=== PATIENT | female | born 1990 | race Caucasian/White ===

== ENCOUNTER 2016-05-15 19:42 | Emergency (ER) | payer OTHER ==
[~2016-05-15] VITALS: Ht 162.6 cm; Wt 53.1 kg
[2016-05-15] MEDS ORDERED: PREN29TA4 PO (20:13)
[2016-05-15 20:48] LABS: BASO % 0.1 % (0.0-1.0); EOS # 0.3 K/mm3 (0.0-0.50); EOS % 1.5 % (0.0-3.0); LARGE UNSTAINED CELL # 0.1 K/mm3 (0.0-0.4); LARGE UNSTAINED CELL % 0.6 % (0.0-4.0); LYMPH # 1.6 K/mm3 (1.5-6.5); LYMPH % 8.6 % (24.0-44.0); MEAN CORPUSCULAR HEMOGLOBIN 31.6 pg (27.0-33.0); MEAN CORPUSCULAR HGB CONC 33.9 g/dl (32.0-36.5); MEAN CORPUSCULAR VOLUME 93.2 fl (80.0-96.0); MONO # 0.5 K/mm3 (0.0-0.8); NEUTROPHILS # 14.7 K/mm3 (1.8-7.7); NEUTROPHILS % 86.2 % (36.0-66.0); PLATELET COUNT, AUTOMATED 271 k/mm3 (150-450); RED CELL DISTRIBUTION WIDTH 12.6 % (11.5-14.5); WHITE BLOOD COUNT 17.1 K/mm3 (4.0-10.0)
--- NOTE | 2016-05-15 21:30 | REPUSA ---
Clinical history: vaginal bleeding. Findings: Real-time transabdominal and transvaginal ultrasound images of the pelvis were obtained. Th ere is a single live intrauterine . The crown rump length measures 6.6 cm. heart rate measures 189 bpm. Cervix measures 1.4 cm in length. The gestational sac including the head prot rudes into the internal cervical os. There is no evidence of a subchorionic hemorrhage. An anteverted uterus is noted. The right ovary measures 4.0 x 2.3 x 3.1 cm. The left ovary measures 4.6 x 3.4 x 3. 5 cm. There is a complex left ovarian cyst measuring 1.6 x 1.7 x 1.2 cm. No adnexal masses are seen. Color Doppler flow is seen within both ovaries. There is no evidence of free fluid. Impression: 1. Single live intrauterine measuring 13 weeks, with a heart rate of 189 bpm. [facility] ed date of delivery is 11/20/2016. However, the head and gestational sac protrude into the inte rnal cervical os. The cervix is also shortened. in progress must be considered. Follow-up is suggested as clinically indicated. 2. Left ovarian corpus luteum cyst.
[2016-05-15 22:09] VITALS: BP 120/70
== END 2016-05-15 22:10 | disposition home or self-care (01) ==
LOC: M ED 21:53
DX: O20.0 Threatened abortion (principal); Z3A.12 12 weeks gestation of pregnancy

== ENCOUNTER 2016-05-16 17:31 | Emergency (ER) | payer OTHER ==
[~2016-05-16] VITALS: Ht 162.6 cm; Wt 53.1 kg
[~2016-05-16 17:31] MED LIST: PREN29TA4 PO
[2016-05-16 17:32] VITALS: BP 117/77
[2016-05-16 18:49] LABS: MEAN CORPUSCULAR HEMOGLOBIN 31.3 pg (27.0-33.0); MEAN CORPUSCULAR HGB CONC 34.6 g/dl (32.0-36.5); MEAN CORPUSCULAR VOLUME 90.4 fl (80.0-96.0); RED CELL DISTRIBUTION WIDTH 12.4 % (11.5-14.5); WHITE BLOOD COUNT 16.3 K/mm3 (4.0-10.0)
[2016-05-16] MEDS ORDERED: ONDANSETRON 4MG/2ML VIAL (J2405) IV ONE (20:15)
[2016-05-16] MEDS ORDERED: MORPHINE 4 MG/ML 1ML SYRINGE IV ONE (20:15)
--- NOTE | 2016-05-16 21:10 | REPUSA ---
Clinical history: Pain. Comparison: 05/15/2016. Findings: Real-time transabdominal and transvaginal ultrasound images of the pelvis were obtained. An anteverted uterus is noted, measuring 11.0 x 6.8 x 8.7 cm. The uterus demonstrates normal echotextur e and echogenicity. The endometrial stripe measures 31 mm. Now intrauterine gestation is identified a t this time. Large amount of complex echogenic material seen throughout the endometrial cavity. The r ight ovary measures 3.1 x 2.3 x 2.6 cm. The left ovary measures 4.5 x 2.5 x 3.9 cm. A left ovarian cy st measures 1.3 x 1.6 x 1.7 cm. No adnexal masses are seen. Color Doppler flow is seen within both ov varun. There is no evidence of free fluid. Impression: 1. Findings consistent with in progress, with a large amount of complex material within the endometrial canal, likely representing a mixture of blood products and products of conception. 2. Left ovarian corpus luteum cyst.
== END 2016-05-16 22:52 | disposition home or self-care (01) ==
LOC: M ED 18:16
DX: O03.9 Complete or unspecified spontaneous abortion without complication (principal); Z3A.12 12 weeks gestation of pregnancy
CPT/HCPCS: 36415; 76801; 84702; 85027; 86850; 86900; 86901; 88305; 96374; 96375; 99283; J2405

== ENCOUNTER 2016-09-21 20:21 | Inpatient (IN) | payer OTHER ==
[~2016-09-21] VITALS: Ht 162.6 cm; Wt 58.6 kg
[2016-09-21] MEDS: PRENATAL VITAMINS CHEWABLE TABLET PO SCH (21:00)
[2016-09-21] MEDS ORDERED: PREN1TAB11 PO (21:09)
[2016-09-21] MEDS ORDERED: TYLE500T78 PO (21:09)
[2016-09-21 21:31] LABS: MEAN CORPUSCULAR HEMOGLOBIN 30.4 pg (27.0-33.0); MEAN CORPUSCULAR HGB CONC 34.3 g/dl (32.0-36.5); MEAN CORPUSCULAR VOLUME 88.7 fl (80.0-96.0); WHITE BLOOD COUNT 7.6 K/mm3 (4.0-10.0)
[2016-09-21 21:46] LABS: CONTROL LINE HCG INT CTR LINE PRESENT
[2016-09-21 21:51] LABS: METHADONE URINE NEGATIVE (NEGATIVE)
[2016-09-21 22:03] LABS: ALBUMIN 4.1 GM/DL (3.2-5.2); ALBUMIN/GLOBULIN RATIO 1.11 (1.00-1.93); ALKALINE PHOSPHATASE 88 U/L (45-117); ALT/SGPT 28 U/L (12-78); ANION GAP 8 MEQ/L (8-16); AST/SGOT 23 U/L (15-37); BILIRUBIN,DIRECT 0.1 MG/DL (0.0-0.2); BILIRUBIN,TOTAL 0.4 MG/DL (0.2-1.0); BLOOD UREA NITROGEN 15 MG/DL (7-18); CALCIUM LEVEL 8.9 MG/DL (8.5-10.1); CARBON DIOXIDE LEVEL 29 MEQ/L (21-32); CHLORIDE LEVEL 105 MEQ/L (98-107); CREATININE FOR GFR 0.74 MG/DL (0.55-1.02); GLOMERULAR FILTRATION RATE > 60.0 (>60); GLUCOSE, FASTING 104 MG/DL (70-105); POTASSIUM SERUM 3.8 MEQ/L (3.5-5.1); SODIUM LEVEL 142 MEQ/L (136-145); TOTAL PROTEIN 7.8 GM/DL (6.4-8.2)
[2016-09-21] MEDS ORDERED: MAALOX 30 ML SUSP *UDC PO PRN (22:30)
[2016-09-21] MEDS ORDERED: traZODone 50 MG TAB PO PRN (22:30)
[2016-09-21] MEDS ORDERED: MOM 30ML SUSPENSION UDC PO PRN (22:30)
[2016-09-21] MEDS ORDERED: LORazepam 1 MG TAB PO PRN (22:30)
[2016-09-21] MEDS ORDERED: HALOPERIDOL 5 MG TAB PO PRN (22:30)
[2016-09-21] MEDS ORDERED: ACETAMINOPHEN TAB 650MG DOSE (2X325MG) PO PRN (22:30)
[2016-09-21 22:56] VITALS: BP 118/80
[2016-09-22 06:50] VITALS: BP 105/69
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
[2016-09-22] MEDS: CitaloPRAM (CeleXA) 10 MG TABLET PO SCH (13:37)
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
[2016-09-22 18:00] VITALS: BP 117/77
--- NOTE | 2016-09-22 20:12 | ECGEPIP ---
Stationary ECG Study [facility] Test Date: 2016-09-22 Pat Name: PAULA SIMPSON Department: Room: [place] [address] Gender: F Payroll Director: VERNOICA : 1990 Requested By: Theresa Richardson Order Number: [id number] Reading MD: Richardson Francisco Measurements Intervals [place] Rate: 56 P: 61 MA: 132 QRS: 68 QRSD: 83 T: 44 QT: 403 QTc: 392 Interpretive Statements SINUS BRADYCARDIA WITH SINUS ARRHYTHMIA NO PRIOR Electronically Signed On 09-22-2016 20:11:41 EDT by Richardson Francisco
[2016-09-22] MEDS: PRENATAL VITAMINS CHEWABLE TABLET PO SCH (21:07)
[2016-09-22] MEDS: traZODone 50 MG TAB PO SCH (21:07)
[2016-09-23 06:26] VITALS: BP 113/59
[2016-09-23] MEDS: CitaloPRAM (CeleXA) 10 MG TABLET PO SCH (08:55)
[2016-09-23 18:00] VITALS: BP 116/63
[2016-09-23] MEDS: PRENATAL VITAMINS CHEWABLE TABLET PO SCH (20:33)
[2016-09-23] MEDS: traZODone 50 MG TAB PO SCH (20:33)
[2016-09-24 06:41] VITALS: BP 112/62
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
[2016-09-24 18:00] VITALS: BP 114/57
[2016-09-24] MEDS: traZODone 50 MG TAB PO SCH (20:34)
[2016-09-24] MEDS: CitaloPRAM (CeleXA) 10 MG TABLET PO SCH (20:34)
[2016-09-24] MEDS: PRENATAL VITAMINS CHEWABLE TABLET PO SCH (20:34)
[2016-09-25 06:53] VITALS: BP 109/56
--- NOTE | 2016-09-25 12:23 | MHIPN ---
DATE: 09/23/2016 Temperature 98.9, pulse 65, respirations 18, blood pressure 113/59. CURRENT MEDICATIONS: - Celexa 10 mg every morning - trazodone 50 mg at bedtime HISTORY OF PRESENT ILLNESS: Patient still reports her mood as depressed. Her appetite is good. She slept somewhat better last night with the trazodone. Her concentration is not very good. Her did visit yesterday. The visit went well. She did get her first dose of Celexa yesterday. She had some mild nausea from it. It also made her sleepy and she took a nap afterwards. The patient has been attending the groups. The patient is getting her second dose of Celexa here this morning. Patient appears comfortable taking the psychotropics. The risks and benefit profile have been reviewed thoroughly yesterday to her satisfaction. MENTAL STATUS EXAMINATION: Patient is alert, oriented and cooperative. Affect remains sad. Mood is mildly to moderately depressed. She is not currently suicidal. No signs of psychosis. No signs of impulsivity or dangerousness. Judgment appears reasonably good. Grooming and hygiene appear good. DIAGNOSIS: Major depression, moderate in severity. PLAN: Continue psychotropics. If morning dose of Celexa is to sedating it will be switched to a bedtime dosage.
[2016-09-25 18:00] VITALS: BP 111/64
[2016-09-25] MEDS: PRENATAL VITAMINS CHEWABLE TABLET PO SCH (20:31)
[2016-09-25] MEDS: traZODone 50 MG TAB PO SCH (20:31)
[2016-09-25] MEDS: CitaloPRAM (CeleXA) 10 MG TABLET PO SCH (20:31)
--- NOTE | 2016-09-26 06:26 | MHIPN ---
DATE OF VISIT: 09/24/2016 CHIEF COMPLAINT: Says she feels better. SUBJECTIVE: Seen in followup, in the presence of staff. She says she is feeling better, she is glad she did not . She feels less depressed, less anxious. She suggests her is supportive and that they have been talking about their difficulties. MENTAL STATUS EXAM: Neat, cooperative, but somewhat superficially so, and possibly a bit guarded. No agitation, no psychomotor retardation. Mood is "okay", affect is restricted in range, somewhat incongruent mood. She denies any active suicidal thought or intact. No homicidal ideation or intent. Currently no evidence of any psychosis. Cognition is grossly intact. Judgment is quite questionable as is insight. ASSESSMENT: 1. Major depressive disorder. 2. Post traumatic stress disorder. PLAN: Continue current care, she has just been started on Citalopram at 10 mg daily. She will continue with trazodone at 50 mg at night as well. Would suggest obtaining collateral information, and encouraging her to participate in activities. VITAL SIGNS: Blood pressure 112/62, pulse 61, temperature 98.9.
[2016-09-26 06:31] VITALS: BP 127/63
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
[2016-09-26 18:00] VITALS: BP 121/72
[2016-09-26] MEDS: traZODone 50 MG TAB PO SCH (20:36)
[2016-09-26] MEDS: CitaloPRAM (CeleXA) 10 MG TABLET PO SCH (20:36)
[2016-09-26] MEDS: PRENATAL VITAMINS CHEWABLE TABLET PO SCH (20:36)
--- NOTE | 2016-09-26 21:54 | MHIPN ---
DATE: 09/25/2016 CHIEF COMPLAINT: She says she feels better. SUBJECTIVE: Seen for followup, in the presence of staff, says she feels better and that sleep has been fair, appetite is good, feels more optimistic. MENTAL STATUS EXAM: Neat, cooperative, less guarded than yesterday. She is coherent. Affect is broader as well. She denies any thoughts of harming herself or anyone else. No evidence of any psychosis. Cognition is grossly intact. Judgment and insight remains fair. ASSESSMENT: Major depressive disorder. PLAN: Continue current care, observations, and I would encourage participation and activities in the unit. She will be seeing the assigned psychiatrist as well as the treatment team tomorrow. VITAL SIGNS: These are as listed: Blood pressure 109/56, pulse 79, temperature 98.2.
[2016-09-27 07:27] VITALS: BP 122/57
--- NOTE | 2016-09-27 17:36 | MHIPNPDOC ---
[facility] Progress Note Progress Note DATE OF SERVICE: 09/27/16 HISTORY: Patient was seen and evaluated for her progress in the inpatient psychiatric unit. On evaluation, patient reported that she has been feeling less depressed and anxious. Yesterday her visited and told her that he has started with anger management classes. He is also interested in going for marital counseling with the patient. Patient reported that she was not expecting that the will be able to follow through but very glad that he started going for anger management classes. Discussed about ways to helping him and avoiding the arguments in the house. She denies any suicidal or homicidal ideations sleeping and eating fine, able to participate in activities of the unit. She is refusing to increase the dose of Celexa but sees planning to follow up with outpatient psychiatrist who can change to medication if need be. VITAL SIGNS: See below. CURRENT MEDICATIONS: See below. MENTAL STATUS EXAMINATION: 25yo female sitting in the chair, looks appropriate for the stated age, fair hygiene and grooming, decrease psychomotor activities, no abnormal movements, cooperative with fair eye contact, speech is soft, normal in rate, rhythm, amount and prosody, mood is 'better', affect constricted and mood congruent, thought process is logical and goal directed, denies suicidal and homicidal ideations, denies hallucinations, no delusions elicited, aaox3, limited insight , fair judgement and impulse control DIAGNOSES: 1. Major depression, moderate in severity, with no psychosis. ASSESSMENT: Patient improving on current treatment and refusing to go up on Celexa MANAGEMENT PLAN:. Continue current treatment. TIME SPENT: 15 minutes. Vital Signs Vital Signs Date Time Temp Pulse Resp B/P (MAP) Pulse Ox O2 Delivery O2 Flow Rate FiO2 09/27/16 07:27 97.6 58 14 122/57 (78) 09/21/16 22:56 Room Air 09/21/16 22:44 99 Current Medications Current Medications Acetaminophen (Tylenol Tab) 650 mg Q6HP PRN PO HEADACHE or DISCOMFORT; Start at 22:30; Stop 10/21/16 at 22:29 Al Hydrox/Mg Hydrox/Simethicone (Mylanta) 30 ml Q4HP PRN PO HEARTBURN/ INDIGESTION; Start 09/21/16 at 22:30; Stop 10/21/16 at 22:29 Citalopram Hydrobromide (CeleXA) 10 mg DAILY PO Last administered on 09/23/16 08:55; Start 09/22/16 at 09:00; Stop 09/23/16 at 14:31; Status DC Citalopram Hydrobromide (CeleXA) 10 mg QPM PO Last administered on 09/26/16 20 :36; Start 09/24/16 at 21:00; Stop 10/22/16 at 08:59 Haloperidol (Haldol) 5 mg Q4HP PRN PO ANXIETY/AGITATION; Start 09/21/16 at 22: 30; Stop 10/21/16 at 22:29 Home Med (Med Rec Complete!) ASDIRECTED XX ; Start 09/21/16 at 21:15; Stop at 21:15; Status DC Lorazepam (Ativan) 1 mg Q4HP PRN PO ANXIETY/AGITATION; Start 09/21/16 at 22:30 ; Stop 09/27/16 at 08:35; Status DC Magnesium Hydroxide (Milk Of Magnesia) 30 ml DAILYPRN PRN PO CONSTIPATION; Start 09/21/16 at 22:30; Stop 10/21/16 at 22:29 Prenat Multivit/ [place]/Iron/Folic Ac ( Vitamins) 1 tab QHS PO Last administered on 09/26/16 20:36; Start 09/21/16 at 21:00; Stop 10/21/16 at 20:59 Trazodone HCl (Desyrel) 50 mg QHS PO Last administered on 09/26/16 20:36; Start 09/22/16 at 21:00; Stop 10/21/16 at 22:29 Trazodone HCl (Desyrel) 50 mg QHSP PRN PO INSOMNIA; Start 09/21/16 at 22:30; Stop 09/22/16 at 21:00; Status DC Allergies Coded Allergies: No Known Allergies (Unverified , 09/21/16) JUAN LIMA MD Sep 27, 2016 17:36
[2016-09-27 18:00] VITALS: BP 126/77
[2016-09-27] MEDS: CitaloPRAM (CeleXA) 10 MG TABLET PO SCH (20:29)
[2016-09-27] MEDS: PRENATAL VITAMINS CHEWABLE TABLET PO SCH (20:29)
[2016-09-27] MEDS: traZODone 50 MG TAB PO SCH (20:29)
[2016-09-28 06:58] VITALS: BP 115/66
--- NOTE | 2016-09-28 17:20 | MHIPNPDOC ---
[facility] Progress Note Progress Note DATE OF SERVICE: 09/28/16 HISTORY: Patient was seen and evaluated for her progress in inpatient psychiatry unit on evaluation agent reported that she has been feeling better with less depression and anxiety, but when started discussing about discharge planning . She started crying and was not able to verbalize what she wants. Even after repeated encouragement , she continued to cry and was not able to verbalize what she wants. She reported that it happens at home. Also, when she is not able to verbalize to her about her needs and starts crying. Discussed about the importance of communication in any relationships. She continued to deny any suicidal or homicidal ideations, but seems to be minimizing her depressive symptoms able to engage in the unit activities. VITAL SIGNS: See below. CURRENT MEDICATIONS: Trazodone HCl (Desyrel) 50 mg QHS PO Celexa 10mg daily MENTAL STATUS EXAMINATION: 25yo female sitting in the chair, looks appropriate for the stated age, fair hygiene and grooming, decrease psychomotor activities, no abnormal movements, cooperative with fair eye contact, tearful at times ,speech is soft, normal in rate, rhythm, amount and prosody, mood is 'upset', affect constricted and mood congruent, thought process is logical and goal directed, denies suicidal and homicidal ideations, denies hallucinations, no delusions elicited, aaox3, limited insight, fair judgement and impulse control DIAGNOSES: 1. Major depression versus adjustment disorder. ASSESSMENT: Patient remains labile and fragile, started crying while discussing discharge planning MANAGEMENT PLAN: Patient refusing to go up on dose of Celexa. Continue current treatment. TIME SPENT:. 15 minutes. Vital Signs Vital Signs Date Time Temp Pulse Resp B/P (MAP) Pulse Ox O2 Delivery O2 Flow Rate FiO2 09/28/16 06:58 98.6 66 16 115/66 (82) 09/27/16 18:00 Room Air Allergies Coded Allergies: No Known Allergies (Unverified , 09/21/16) JUAN LIMA MD Sep 28, 2016 17:20
[2016-09-28 18:00] VITALS: BP 112/58
[2016-09-28] MEDS: PRENATAL VITAMINS CHEWABLE TABLET PO SCH (20:40)
[2016-09-28] MEDS: traZODone 50 MG TAB PO SCH (20:40)
[2016-09-28] MEDS: CitaloPRAM (CeleXA) 10 MG TABLET PO SCH (20:40)
[2016-09-29 06:14] VITALS: BP 119/60
--- NOTE | 2016-09-29 16:59 | MHIPNPDOC ---
[facility] Progress Note Progress Note DATE OF SERVICE: 09/29/16 HISTORY: Patient was seen and evaluated for her progress in inpatient psychiatry unit. On evaluation, patient reported that she was very upset yesterday but was able to calm down after talking to the staff and no agitation or aggressive episode happened. She reported that she was able to talk to her . Also yesterday evening about being upset without crying and she feels proud of it. She reported that she has been working on her communication so that instead of crying all the time, She can verbalize what she wants. And do not help to burst into suicidal attempt. Discussed about coping skills regarding journal and preparing coping card, which she can use even after discharge from the hospital and she was willing to work on it. She continues to refuse to increased dose of the medications at this point, but willing to work with the outpatient psychiatrist to titrate medications. Further, she denies any paranoia or hallucinations. Sleeping and eating fine. VITAL SIGNS: See below. CURRENT MEDICATIONS: Trazodone HCl (Desyrel) 50 mg QHS PO Celexa 10mg daily MENTAL STATUS EXAMINATION: 25yo female sitting in the chair, looks appropriate for the stated age, fair hygiene and grooming, decrease psychomotor activities, no abnormal movements, cooperative with fair eye contact, tearful at times ,speech is soft, normal in rate, rhythm, amount and prosody, mood is 'upset', affect constricted and mood congruent, thought process is logical and goal directed, denies suicidal and homicidal ideations, denies hallucinations, no delusions elicited, aaox3, limited insight, fair judgement and impulse control DIAGNOSES: 1. Major depression versus adjustment disorder. ASSESSMENT: Patient remains labile and fragile, started crying while discussing discharge planning MANAGEMENT PLAN: Patient refusing to go up on dose of Celexa. Continue current treatment. TIME SPENT:. 15 minutes. Vital Signs Vital Signs Date Time Temp Pulse Resp B/P (MAP) Pulse Ox O2 Delivery O2 Flow Rate FiO2 09/29/16 06:14 98.1 65 16 119/60 (79) 09/28/16 18:00 Room Air Current Medications Current Medications Acetaminophen (Tylenol Tab) 650 mg Q6HP PRN PO HEADACHE or DISCOMFORT; Start at 22:30; Stop 10/21/16 at 22:29 Al Hydrox/Mg Hydrox/Simethicone (Mylanta) 30 ml Q4HP PRN PO HEARTBURN/ INDIGESTION; Start 09/21/16 at 22:30; Stop 10/21/16 at 22:29 Citalopram Hydrobromide (CeleXA) 10 mg DAILY PO Last administered on 09/23/16 08:55; Start 09/22/16 at 09:00; Stop 09/23/16 at 14:31; Status DC Citalopram Hydrobromide (CeleXA) 10 mg QPM PO Last administered on 09/28/16 20 :40; Start 09/24/16 at 21:00; Stop 10/22/16 at 08:59 Haloperidol (Haldol) 5 mg Q4HP PRN PO ANXIETY/AGITATION; Start 09/21/16 at 22: 30; Stop 10/21/16 at 22:29 Home Med (Med Rec Complete!) ASDIRECTED XX ; Start 09/21/16 at 21:15; Stop at 21:15; Status DC Lorazepam (Ativan) 1 mg Q4HP PRN PO ANXIETY/AGITATION; Start 09/21/16 at 22:30 ; Stop 09/27/16 at 08:35; Status DC Magnesium Hydroxide (Milk Of Magnesia) 30 ml DAILYPRN PRN PO CONSTIPATION; Start 09/21/16 at 22:30; Stop 10/21/16 at 22:29 Prenat Multivit/ [place]/Iron/Folic Ac ( Vitamins) 1 tab QHS PO Last administered on 09/28/16 20:40; Start 09/21/16 at 21:00; Stop 10/21/16 at 20:59 Trazodone HCl (Desyrel) 50 mg QHS PO Last administered on 09/28/16 20:40; Start 09/22/16 at 21:00; Stop 10/21/16 at 22:29 Trazodone HCl (Desyrel) 50 mg QHSP PRN PO INSOMNIA; Start 09/21/16 at 22:30; Stop 09/22/16 at 21:00; Status DC Allergies Coded Allergies: No Known Allergies (Unverified , 09/21/16) JUAN LIMA MD Sep 29, 2016 16:59
[2016-09-29 18:00] VITALS: BP 116/55
[2016-09-29] MEDS: CitaloPRAM (CeleXA) 10 MG TABLET PO SCH (20:35)
[2016-09-29] MEDS: traZODone 50 MG TAB PO SCH (20:35)
[2016-09-29] MEDS: PRENATAL VITAMINS CHEWABLE TABLET PO SCH (20:35)
[2016-09-30 06:44] VITALS: BP 101/65
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
[2016-09-30 18:00] VITALS: BP 119/64
[2016-09-30] MEDS: traZODone 50 MG TAB PO SCH (20:34)
[2016-09-30] MEDS: PRENATAL VITAMINS CHEWABLE TABLET PO SCH (20:34)
[2016-09-30] MEDS: CitaloPRAM (CeleXA) 10 MG TABLET PO SCH (20:34)
[2016-10-01 06:00] VITALS: BP 107/61
[2016-10-01 18:00] VITALS: BP 110/56
[2016-10-01] MEDS: PRENATAL VITAMINS CHEWABLE TABLET PO SCH (20:32)
[2016-10-01] MEDS: traZODone 50 MG TAB PO SCH (20:32)
[2016-10-01] MEDS: CitaloPRAM (CeleXA) 10 MG TABLET PO SCH (20:32)
[2016-10-02 06:36] VITALS: BP 109/64
[2016-10-02 18:00] VITALS: BP 136/84
[2016-10-02] MEDS: PRENATAL VITAMINS CHEWABLE TABLET PO SCH (20:32)
[2016-10-02] MEDS: CitaloPRAM (CeleXA) 10 MG TABLET PO SCH (20:32)
[2016-10-02] MEDS: traZODone 50 MG TAB PO SCH (20:32)
[2016-10-03 06:00] VITALS: BP 111/61
[2016-10-03] MEDS ORDERED: CELE10TA PO (11:01)
[2016-10-03] MEDS ORDERED: TRAZO50TA PO (11:01)
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
== END 2016-10-03 12:10 | disposition home or self-care (01) | DRG 881 ==
LOC: M ED 20:21 → M ED INP 22:22 → M PSY 22:55
PROVIDERS: ADMIT Psychiatry & Neurology Psychiatry; ATTEND Psychiatry & Neurology Psychiatry
DX: F32.9 Major depressive disorder, single episode, unspecified (principal); R45.851 Suicidal ideations; F41.9 Anxiety disorder, unspecified; Z91.5 Personal history of self-harm; Z79.899 Other long term (current) drug therapy

== ENCOUNTER 2017-01-15 15:27 | Emergency (ER) | payer OTHER ==
[~2017-01-15] VITALS: Ht 162.6 cm; Wt 59.1 kg
[~2017-01-15 15:27] MED LIST changes: +CELE10TA PO; +PREN1TAB11 PO; +TRAZO50TA PO; +TYLE500T78 PO
[2017-01-15] MEDS ORDERED: ZOLO25TA PO (15:45)
[2017-01-15 17:19] LABS: BASO % 0.3 % (0.0-1.0); EOS # 0.1 10^3/uL (0.0-0.50); EOS % 1.2 % (0.0-3.0); IMMATURE GRANULOCYTE % 0.4 % (0-0); LYMPH # 1.8 10^3/uL (1.5-6.5); LYMPH % 17.3 % (24.0-44.0); MEAN CORPUSCULAR HGB CONC 33.7 g/dl (32.0-36.5); MONO # 0.9 10^3/uL (0.0-0.8); MONO % 8.4 % (0.0-5.0); NEUTROPHILS # 7.4 10^3/uL (1.8-7.7); NEUTROPHILS % 72.4 % (36.0-66.0); PLATELET COUNT, AUTOMATED 283 10^3/uL (150-450); RED CELL DISTRIBUTION WIDTH 11.9 % (11.5-14.5); WHITE BLOOD COUNT 10.1 10^3/uL (4.0-10.0)
[2017-01-15 17:23] LABS: MUCUS, URINE RFX MODERATE (NEGATIVE); SPECIFIC GRAVITY UR AUTO RFX 1.026 (1.002-1.035); SQUAM EPITHELIAL CELL UR AURFX 11 /HPF (0-6)
--- NOTE | 2017-01-15 17:40 | REPUSA ---
CLINICAL HISTORY: Vaginal bleeding. TECHNIQUE: Realtime sonographic images were obtained in multiple projections. COMMENTS: A single intrauterine is identified with crown/rump length of 1.6 cm which corresponds to t he mean estimated gestational age of 8 weeks 0 days. heart motion is present, 162 beats per mi nute. No subchorionic hemorrhage is identified. Maternal adnexa and cul-de-sac are unremarkable. The estimated date of delivery is 08/24/2017. No gross anomaly is identified. IMPRESSION: Single, live, intrauterine gestation, 8 weeks 0 days based on today's crown/rump length. Repeating the scan at 19-20 weeks gestation is recommended for detailed anatomic surveillance.
[2017-01-15 17:56] LABS: ALBUMIN/GLOBULIN RATIO 0.95 (1.00-1.93); ALKALINE PHOSPHATASE 68 U/L (45-117); ALT/SGPT 40 U/L (12-78); ANION GAP 7 MEQ/L (8-16); AST/SGOT 24 U/L (7-37); BILIRUBIN,TOTAL 0.3 MG/DL (0.2-1.0); BLOOD UREA NITROGEN 9 MG/DL (7-18); CALCIUM LEVEL 8.8 MG/DL (8.5-10.1); CARBON DIOXIDE LEVEL 28 MEQ/L (21-32); CHLORIDE LEVEL 101 MEQ/L (98-107); CREATININE FOR GFR 0.67 MG/DL (0.55-1.02); GLOMERULAR FILTRATION RATE > 60.0 (>60); GLUCOSE, FASTING 94 MG/DL (70-105); HCG, SERUM QUANTITATIVE 48064 MIU/ML; POTASSIUM SERUM 3.4 MEQ/L (3.5-5.1); SODIUM LEVEL 136 MEQ/L (136-145); TOTAL PROTEIN 8.2 GM/DL (6.4-8.2)
[2017-01-15] MEDS ORDERED: MACR100C43 PO (18:01)
[2017-01-15 18:15] VITALS: BP 123/70
== END 2017-01-15 18:48 | disposition home or self-care (01) ==
LOC: M ED 15:27
DX: O26.891 Other specified pregnancy related conditions, first trimester (principal); O26.851 Spotting complicating pregnancy, first trimester; O99.341 Other mental disorders complicating pregnancy, first trimester; F41.9 Anxiety disorder, unspecified; Z87.891 Personal history of nicotine dependence; Z3A.00 Weeks of gestation of pregnancy not specified; Z79.899 Other long term (current) drug therapy

== ENCOUNTER 2017-04-01 17:20 | Emergency (ER) | payer OTHER ==
[2017-04-01 20:45] LABS: BASO % 0.3 % (0.0-1.0); EOS # 0.1 10^3/uL (0.0-0.50); EOS % 1.2 % (0.0-3.0); HEMATOCRIT 40.4 % (36.0-47.0); HEMOGLOBIN 13.7 g/dl (12.0-16.0); IMMATURE GRANULOCYTE % 0.7 % (0-3.0); LYMPH # 1.8 10^3/uL (1.5-6.5); LYMPH % 17.5 % (24.0-44.0); MEAN CORPUSCULAR HEMOGLOBIN 30.8 pg (27.0-33.0); MEAN CORPUSCULAR HGB CONC 33.9 g/dl (32.0-36.5); MEAN CORPUSCULAR VOLUME 90.8 fl (80.0-96.0); MONO # 0.8 10^3/uL (0.0-0.8); MONO % 7.8 % (0.0-5.0); NEUTROPHILS # 7.4 10^3/uL (1.8-7.7); NEUTROPHILS % 72.5 % (36.0-66.0); PLATELET COUNT, AUTOMATED 255 10^3/uL (150-450); RED BLOOD COUNT 4.45 10^6/uL (4.00-5.40); RED CELL DISTRIBUTION WIDTH 12.7 % (11.5-14.5); WHITE BLOOD COUNT 10.2 10^3/uL (4.0-10.0)
[2017-04-01 21:08] LABS: APPEARANCE, URINE CLEAR (CLEAR); BACTERIA, URINE AUTO NEGATIVE (NEGATIVE); BILIRUBIN, URINE AUTO NEGATIVE (NEGATIVE); BLOOD, URINE BLOOD NEGATIVE (NEGATIVE); COLOR, URINE YELLOW (YELLOW); GLUCOSE, URINE (UA) AUTO 2+ mg/dL (NEGATIVE); KETONE, URINE AUTO NEGATIVE (NEGATIVE); LEUKOCYTE ESTERASE, URINE AUTO NEGATIVE (NEGATIVE); MUCUS, URINE SMALL (NEGATIVE); NITRITE, URINE AUTO NEGATIVE (NEGATIVE); PROTEIN, URINE AUTO NEGATIVE (NEGATIVE); RBC, URINE AUTO 0 /HPF (0-3); SPECIFIC GRAVITY URINE AUTO 1.024 (1.002-1.035); SQUAMOUS EPITHELIAL CELL UR AU 4 /HPF (0-6); UROBILINOGEN, URINE AUTO 0.2 mg/dL (0.0-2.0); WBC, URINE AUTO 1 /HPF (0-3)
[2017-04-01 21:09] LABS: ANION GAP 6 MEQ/L (8-16); BLOOD UREA NITROGEN 10 MG/DL (7-18); CALCIUM LEVEL 8.3 MG/DL (8.5-10.1); CARBON DIOXIDE LEVEL 29 MEQ/L (21-32); CHLORIDE LEVEL 104 MEQ/L (98-107); GLOMERULAR FILTRATION RATE > 60.0 (>60); GLUCOSE, FASTING 86 MG/DL (70-100); POTASSIUM SERUM 3.7 MEQ/L (3.5-5.1); SODIUM LEVEL 139 MEQ/L (136-145)
== END 2017-04-01 23:16 | disposition home or self-care (01) ==
LOC: M ED 17:20
DX: O26.892 Other specified pregnancy related conditions, second trimester (principal); R10.2 Pelvic and perineal pain; Z3A.18 18 weeks gestation of pregnancy; Z79.899 Other long term (current) drug therapy
CPT/HCPCS: 76811

== ENCOUNTER 2017-08-23 02:20 | Inpatient (IN) | payer OTHER ==
[2017-08-23] MEDS ORDERED: LR 1,000 ML IV (05:55)
[2017-08-23] MEDS: LACTATED RINGER'S 1000 ML IV (06:22)
[2017-08-23 06:34] LABS: HEMOGLOBIN 14.1 g/dl (12.0-15.5); MEAN CORPUSCULAR HEMOGLOBIN 30.9 pg (27.0-33.0); MEAN CORPUSCULAR HGB CONC 35.3 g/dl (32.0-36.5); MEAN CORPUSCULAR VOLUME 87.7 fl (80.0-96.0); PLATELET COUNT, AUTOMATED 285 10^3/uL (150-450); RED BLOOD COUNT 4.56 10^6/uL (4.00-5.40); RED CELL DISTRIBUTION WIDTH 13.2 % (11.5-14.5); WHITE BLOOD COUNT 11.5 10^3/uL (4.0-10.0)
[2017-08-23] MEDS ORDERED: FENTANYL 2MCG/ML ROPIVACAINE 0.2% IN 0.9% NACL 200ML IVBAG As Ordered (10:31)
[2017-08-23] MEDS ORDERED: EPIDURAL COMMENT XX (12:00)
[2017-08-23] MEDS ORDERED: ONDANSETRON 4MG/2ML VIAL (J2405) IV ×2 (12:00→18:30)
[2017-08-23] MEDS ORDERED: EPIDURAL/PCA KEYS XX (12:00)
[2017-08-23] MEDS ORDERED: LACTATED RINGER'S 1000 ML IV (12:00)
[2017-08-23] MEDS ORDERED: REFRIGERATOR IV KEYS XX (12:00)
[2017-08-23] MEDS ORDERED: diphenhydrAMINE INJ 50MG/ML VIAL (J1200) IV (12:00)
[2017-08-23] MEDS ORDERED: NALOXONE INJ 0.4 MG/1 ML VIAL (J2310) IV (12:00)
[2017-08-23] MEDS ORDERED: ePHEDrine SULFATE 25 MG/5 ML(5MG/ML) SYRINGE IV (12:00)
[2017-08-23] MEDS ORDERED: FENTANYL/ROPIVACAINE/NACL BAG 200 ML EPIDURAL (12:00)
[2017-08-23] MEDS ORDERED: OXYTOCIN 30 UNITS IN 0.9% NaCl 500ML IV BAG (J2590) As Ordered (14:22)
[2017-08-23] MEDS ORDERED: OXYTOCIN DRIP 30 UNITS in APPROPRIATE DILUENT 1 EA IV ×2 (15:15→15:30)
[2017-08-23] MEDS: OXYTOCIN DRIP 30 UNITS in APPROPRIATE DILUENT 1 EA IV (18:16)
[2017-08-23] MEDS ORDERED: MEASLES,MUMPS,RUBELLA VACCINE INJ (MMR-II) (90707) SC (18:30)
[2017-08-23] MEDS ORDERED: METHYLERGONOVINE MALEATE 0.2 MG TAB PO (18:30)
[2017-08-24] MEDS: PRENATAL VITAMINS CHEWABLE TABLET PO (09:00)
[2017-08-24] MEDS: ACETAMINOPHEN TAB 650MG DOSE (2X325MG) PO (10:34)
[2017-08-24] MEDS: DIBUCAINE 1% OINTMENT 30GM TOP (21:46)
[2017-08-24] MEDS: IBUPROFEN 600 MG TAB PO (21:47)
[2017-08-24] MEDS: DOCUSATE SODIUM 100 MG CAP PO (21:47)
[2017-08-25] MEDS: PRENATAL VITAMINS CHEWABLE TABLET PO (09:16)
== END 2017-08-25 11:11 | disposition home or self-care (01) | DRG 775 ==
LOC: M LDO 02:20 → M LDI 06:13 → M OBS 21:00
PROVIDERS: Obstetrics & Gynecology
PROC: 10E0XZZ Delivery of Products of Conception, External Approach (ICD-10-PCS; principal; 2017-08-23)
PROC: 0KQM0ZZ Repair Perineum Muscle, Open Approach (ICD-10-PCS; 2017-08-23)
PROC: 10907ZC Drainage of Amniotic Fluid, Therapeutic from Products of Conception, Via Natural or Artificial Opening (ICD-10-PCS; 2017-08-23)
DX: O99.344 Other mental disorders complicating childbirth (principal); Z3A.39 39 weeks gestation of pregnancy; F32.9 Major depressive disorder, single episode, unspecified; O77.0 Labor and delivery complicated by meconium in amniotic fluid; O70.1 Second degree perineal laceration during delivery; Z37.0 Single live birth